=== PATIENT | female | born 1995 | race Two or more races ===

== ENCOUNTER 2021-10-26 12:17 | Emergency (ER) | payer OTHER ==
[2021-10-26 12:35] VITALS: BP 118/79; PULSE 86; TEMP 98; BMI 24.7
[2021-10-26 14:19] LABS: BASO % 0.6 % (0-2.0); LYMPH % 30.8 % (8-40); MCH 30.7 pg (25.7-33.7); MCHC 33.4 g/dl (32.0-36.0); MEAN CELL VOLUME 92.1 fl (80-96); MEAN PLT VOLUME 11.1 fl (7.5-11.1); MONO % 8.5 % (3.8-10.2); NEUT % 57.1 % (42.8-82.8); PLATELET COUNT 182 10^3/uL (134-434); RBC 4.24 M/mm3 (3.60-5.2); RDW 13.5 % (11.6-15.6); WHITE BLOOD COUNT 5.9 K/mm3 (4.0-10.0)
[2021-10-26 14:38] LABS: CALCIUM 8.9 mg/dL (8.5-10.1)
[2021-10-26 14:39] LABS: ALBUMIN 3.8 g/dl (3.4-5.0)
[2021-10-26 14:41] LABS: CREATININE 0.6 mg/dL (0.55-1.3)
[2021-10-26 14:43] LABS: BILIRUBIN,TOTAL 0.8 mg/dL (0.2-1); TOT PROT 7.1 g/dl (6.4-8.2)
== END 2021-10-26 15:16 | disposition home or self-care (01) ==
LOC: JERFT 12:17 → JER 12:17 → JERFT 15:16
DX: R59.9 Enlarged lymph nodes, unspecified (principal)
CPT/HCPCS: 36415; 70360-TC-FY; 80053; 84439; 84443; 84703; 85025; 86308; 87651; 99284-25